=== PATIENT | female | born 1985 | race Caucasian/White ===

== ENCOUNTER 2018-12-06 01:13 | Inpatient (IN) | payer BC ==
[2018-12-06] MEDS ORDERED: IBUPROFEN 600 MG TAB PO PRN (01:42)
[2018-12-06] MEDS ORDERED: MISOPROSTOL 200 MCG TAB PR PRN (01:42)
[2018-12-06] MEDS ORDERED: OLIVE OIL 118 ML BTL MISC PRN (01:42)
[2018-12-06] MEDS ORDERED: OXYTOCIN/RINGERS LACTATE 1,000 ML IV PRN (01:42)
[2018-12-06] MEDS ORDERED: LIDOCAINE 1% 300 MG/30 ML SDV SC PRN (01:42)
[2018-12-06] MEDS ORDERED: EPSOM SALT 454 GM TP PRN (01:42)
[2018-12-06] MEDS ORDERED: LR 1,000 ML IV PRN (01:42)
--- NOTE | 2018-12-06 01:43 | PDGENHP ---
History and Physical - Chief Complaint Early labor - History of Present Illness Uyen is a 33 yo today at 40w2d by SHIVANI on 12/04/18. Saw Dr. Casey in clinic this morning and was 3cm, had membranes swept. Reports she was feeling mild cramps throughout the day that intensified around 2300. Does not think her water has broke. GBS negative. 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 H/o anxiety and depression. H/o borderline BP during her first labor, but never with a diagnosis of GHTN or preeclampsia. H/o one SAB with no D&C required, then G1 was an "Elayne" at 40w3d, [id number]. Had epidural. labs: A pos Antibody Neg RPR NR Rubella LOW immune (11) Hep B neg HIV neg Trio neg 2014 Standard panel neg this preg UDS neg GCC neg Innatal normal H/H 12.6/37.8 (28 wks) Glucola 126 VZV and Parvo immune History Information - Allergies/Home Medication List Allergies/Adverse Reactions: No Known Allergies Allergy (Unverified 07/26/15 01:31) Home Medications: 12/06/18 [Last Taken 12/05/18 22:00] Valtrex (*) 12/06/18 [Last Taken 12/05/18 22:00] I have personally reviewed and updated: family history, medical history, social history, surgical history Past Medical History: H/o genital herpes, Borderline BP elevations in first labor - no dx of GHTN or preE, Anxiety - Surgical History Additional surgical history: None - x 1, Tonsils - Family History Positive for: non-pertinent - Social History Smoking Status: Never smoked Review of Systems Review of Systems: ROS: 10pt was reviewed & negative except for what was stated in HPI & below Physical Exam Physical Exam: Uncomfortable with regular contractions, breathing through them Abdomen is soft between ctx's, gravid, longitudinal lie FHR 130bpm, mod elizabeth, accels present, no decels Regal regular ctx's q 3-4 mins 5-6/90/-2 per RN on initial exam, intact, vertex Assessment & Plan Assessment: 33 yo at 40w2d presents in active labor. - GBS negative. - Epidural whenever she wants. - Expectant mgmt. - Genital HSV - On prophylaxis, no recent lesions. - Anxiety, no meds - Rh pos, VZV immune. - Rubella low-immune at 11, does not need MMR per WHO criteria (>10). JM
[2018-12-06 01:55] LABS: PLATELET COUNT 194 10^3/uL (150-400)
[2018-12-06] MEDS ORDERED: OLIVE OIL 118 ML BTL MISC ONE (02:12)
[2018-12-06] MEDS ORDERED: LIDOCAINE 1% 300 MG/30 ML SDV ONE (02:12)
[2018-12-06] MEDS ORDERED: AMMONIA AROMATIC 1 EACH AMP IH ONE (02:13)
[2018-12-06] MEDS ORDERED: TERBUTALINE SULFATE 1 MG/ML VIAL ONE (02:13)
[2018-12-06] MEDS ORDERED: MISOPROSTOL 200 MCG TAB ONE (02:13)
[2018-12-06] MEDS ORDERED: OXYTOCIN 10 UNIT/ML VIAL ONE (02:13)
[2018-12-06] MEDS ORDERED: fentaNYL 100 MCG/2 ML INJ ONE (02:15)
[2018-12-06] MEDS ORDERED: PHENYLEPHRINE HCL 100 MCG/ML SYR ONE (02:15)
[2018-12-06] MEDS ORDERED: fentaNYL 200 MCG, BUPIVACAINE 0.5% 20 ML in NS 100 ML EP SCH (02:30)
[2018-12-06] MEDS ORDERED: ONDANSETRON 4 MG/2 ML VIAL IVP PRN (02:53)
[2018-12-06] MEDS ORDERED: NALOXONE HCL 0.4 MG/ML INJ IVP PRN (02:53)
[2018-12-06] MEDS ORDERED: PHENYLEPHRINE HCL 100 MCG/ML SYR IVP PRN (02:53)
--- NOTE | 2018-12-06 02:55 | PREANESOB ---
Obstetric Pre-Anesthesia Info - General Info Proposed Procedure: trial of labor : 3 Para: 1 SHIAVNI: 12/01/18 Gestational Age: 40 week(s) and 5 day(s) - Info Status: Full Term Monitors: External FHR Pattern: Reassuring - Labor Status Indications for Labor Analgesia: Pain Control Labor Epidural: Yes Anesthesia Allergies/Adverse Reactions: Allergy/AdvReac Type Severity Reaction Status Date / Time No Known Allergies Allergy Unverified 07/26/15 01:31 Home Medications: Medication Instructions Recorded 12/06/18 Valtrex (*) 12/06/18 Visit Medications: Generic Name Dose Route Start Last Admin Trade Name Freq PRN Reason Stop Dose Admin Lactated Ringer's 1,000 mls @ 0 mls/hr 12/06/18 01:42 Lr IV 12/07/18 01:41 PRN PRN SEE PROTOCOL CONDITIONS Protocol Per Protocol Oxytocin/Lactated Ringer's 1,000 mls @ 125 mls/hr 12/06/18 01:42 Pitocin 20 Units/Lr (Premix) IV PRN PRN Post bleeding Fentanyl 200 mcg/ Bupivacaine 100 mls @ 0 mls/hr 12/06/18 02:30 HCl 20 ml/ Sodium Chloride EP 12/16/18 02:29 CONT FLOYD Protocol As Directed Ibuprofen 600 mg 12/06/18 01:42 Motrin PO ONCE PRN post , pain Lidocaine HCl 300 mg 12/06/18 01:42 Lidocaine Hcl 1% SC 06/04/19 01:41 ONCE PRN episiotomy Magnesium Sulfate 454 gm 12/06/18 01:42 Epsom Salt TP 06/04/19 01:41 Q1H PRN perineal discomfort Misoprostol 800 - 1,000 mcg 12/06/18 01:42 Cytotec MA ONCE PRN Vaginal Atony/Bleeding [place] Oil 118 ml 12/06/18 01:42 Sweet Oil MISC 06/04/19 01:41 ONCE PRN perineal massage Discontinued Medications Generic Name Dose Route Start Last Admin Trade Name Freq PRN Reason Stop Dose Admin Ammonia (Aromatic Spirit) Confirm 12/06/18 02:13 Ammonia Aromatic Administered 12/06/18 02:14 Dose 1 each IH .STK-MED ONE Fentanyl Confirm 12/06/18 02:15 Sublimaze Administered 12/06/18 02:16 Dose 100 mcg .ROUTE .STK-MED ONE Lidocaine HCl Confirm 12/06/18 02:12 Lidocaine Hcl 1% Administered 12/06/18 02:13 Dose 300 mg .ROUTE .STK-MED ONE Misoprostol Confirm 12/06/18 02:13 Cytotec Administered 12/06/18 02:14 Dose 1,000 mcg .ROUTE .STK-MED ONE Ivanhoe Oil Confirm 12/06/18 02:12 Sweet Oil Administered 12/06/18 02:13 Dose 118 ml MISC .STK-MED ONE Oxytocin Confirm 12/06/18 02:13 Pitocin Administered 12/06/18 02:14 Dose 40 unit .ROUTE .STK-MED ONE Phenylephrine HCl Confirm 12/06/18 02:15 Neosynephrine Administered 12/06/18 02:16 Dose 1,000 mcg .ROUTE .STK-MED ONE Terbutaline Sulfate Confirm 12/06/18 02:13 Brethine Administered 12/06/18 02:14 Dose 1 mg .ROUTE .STK-MED ONE - Anesthesia History Response to Local Anesthetics: Normal Anesthesia & Operative History: No Prior Problems Family Anesthesia History: Negative - Vital Signs Height/Weight (Nursing): Height 172.72 cm Weight 80.286 kg - Focused Exam Mallampati Score: Class 2 Mouth exam: normal dental/mouth exam Labs: 12/06/18 01:30 Patient ABO/Rh A POSITIVE 12/06/18 01:30 - Plan Consent Signed and on Chart: Yes Patient/Guardian Understands and Agrees to Plan: Yes Urgent/Emergent Case: Cnidy darnell completed preop but documented later for safe timely pt care
[2018-12-06] MEDS ORDERED: fentaNYL 2MCG/ML/BUP 0.1% RTU 100 ML EP SCH (03:00)
[2018-12-06] MEDS ORDERED: LR 500 ML IV SCH (03:00)
[2018-12-06] MEDS ORDERED: oxyCODONE IR 5 MG TAB PO PRN (04:27)
[2018-12-06] MEDS ORDERED: HYDROCORTISONE 0.5% CREAM TP PRN (04:27)
[2018-12-06] MEDS ORDERED: SIMETHICONE 80 MG TAB CHEW PO PRN (04:27)
--- NOTE | 2018-12-06 04:27 | OBDEL ---
Info Type: Vaginal Presentation at Delivery: Vertex L&D Analgesia/Anesthesia Type: Epidural GBS+: No Intrapartum Medications: Generic Name Dose Route Start Last Admin Trade Name Freq PRN Reason Stop Dose Admin Lactated Ringer's 1,000 mls @ 0 mls/hr 12/06/18 01:42 12/06/18 02:00 Lr IV 12/07/18 01:41 1,000 mls PRN PRN Administration SEE PROTOCOL CONDITIONS Protocol Per Protocol Discontinued Medications Generic Name Dose Route Start Last Admin Trade Name Freq PRN Reason Stop Dose Admin Oxytocin/Lactated Ringer's 1,000 mls @ 125 mls/hr 12/06/18 01:42 12/06/18 04: 00 Pitocin 20 Units/Lr (Premix) IV 1,000 mls PRN PRN Administration Post bleeding Indications for Delivery: Spontaneous Labor Vaginal Delivery - Delivery Provider Delivery Physician/CNM: Pantera Mann - Labor and Delivery Onset of Contractions Date: 12/05/18 Onset of Contractions Time: 23:00 Onset of Contractions Type: Spontaneous Rupture of Membranes Type: Spontaneous Amniotic Fluid Color: Meconium Stained Dilation Complete Date: 12/06/18 Dilation Complete Time: 03:42 Placenta Delivery Date: 12/06/18 Placenta Delivery Time: 04:00 Total Hours of Labor: 5 Laceration: 2nd Degree, Other (Specify) (left labial) Repair: 3-0, 4-0, Vicryl Vaginal Sponge Count Correct: Yes Vaginal Needle Count Correct: Yes Vaginal Sweep Performed: Yes EBL: 350 Delivery Events: Nuchal Cord Delivery Comment: Presented in spontaneous labor, dilated to 6cm on arrival. Having non- repetitive variable decels. Cat 2 tracing. Got epidural. SROM'd soon after with meconium stained fluid. 9cm at that time. Soon after felt pushy and found to be complete and +2. Variables repetitive and deeper at this point and with pushing. Ultimately pushed over 4 contractions and delivered vigorous baby boy over 2nd degree lac with left labial lac. Baby up to mom's chest. 90 seconds of delayed cord clamping then clamped and cut. Placenta delivered spontaneously without issue. Normal on gross inspection. Labial lac repaired with running locked 4-0 vicryl. 2nd degree repaired with 3-0 vicryl standard fashion. Mom and baby doing well in room at conclusion, EBL 350cc. - Medications Labor Augmentation/Induction Methods Used: None Data SHIVANI: 12/04/18 Gestational Age: 40 week(s) and 2 day(s) Singletary Delivery Date: 12/06/18 Delivery Time: 03:55 Sex of Infant: Male Shoulder Dystocia Time Head Delivered: 03:55 Time Body Delivered: 03:55 Dystocia Comment: None ICD10 Worksheet Patient Problems: Problems Problem Status Onset Normal labor and delivery Acute Nuchal cord affecting delivery Acute (spontaneous vaginal delivery) Acute Normal labor Acute Spontaneous vaginal delivery Acute - ICD10 Problem Qualifiers (1) (spontaneous vaginal delivery) (2) Normal labor and delivery (3) Nuchal cord affecting delivery
[2018-12-06] MEDS: DOCUSATE SODIUM 100 MG CAP PO PRN ×2 (08:08→20:31)
[2018-12-06] MEDS: ACETAMINOPHEN 325 MG TAB PO PRN ×3 (08:08→20:31)
--- NOTE | 2018-12-06 09:41 | POSTANESTH ---
Post Anesthetic Evaluation Cardiovascular Status: Normal, Stable, Similar to Pre-Op Cond Respiratory Status: Normal, Stable, Similar to Pre-op Cond. Level of Consciousness/Mental Status: Can Participate in Eval, Alert and Oriented Pain Control: Adequate, Prn Tx Ordered Nausea/Vomiting Control: Adequate, Prn Tx Ordered Complications Possibly Related to Anesthesia: None Noted Notes: Pt seen and examined. Back site c/d/i, no e/e/e. Block has resolved. Able to ambulate. Denies tubbs/n/v/pruritis. No apparent ill-effects from GARRICK.
[2018-12-06] MEDS: IBUPROFEN 600 MG TAB PO PRN ×2 (14:27→20:31)
[2018-12-07] MEDS: ACETAMINOPHEN 325 MG TAB PO PRN ×3 (05:01→17:38)
[2018-12-07] MEDS: IBUPROFEN 600 MG TAB PO PRN ×3 (05:01→17:38)
[2018-12-07] MEDS: DOCUSATE SODIUM 100 MG CAP PO PRN (11:16)
[2018-12-07] MEDS ORDERED: MEASLES,MUMPS&RUBELLA VACC/PF 0.5 ML VIAL SC ONE ×3 (11:27→19:03)
[2018-12-07] MEDS ORDERED: FERRO-SEQUELS 65 MG TAB.ER PO SCH (11:30)
--- NOTE | 2018-12-07 11:31 | OBPP ---
Progress Note Assessment/Plan: Assessment: 33 y/o PPD #1 s/p doing well Plan: support today. Rx Ibuprofen and Ferrous sequels. RTO 3 and 6 weeks and call for fever, heavy bleeding or other concerns. 12/07/18 11:30 Subjective/ Course: 12/07/18 11:28 Pt is doing well this am. She has good pain control with PO Ibuprofen and Tylenol. She has a BM this am, wasn't terrible. Ambulating and voiding without difficulty and has min lochia. Breast feeding is going well and baby is doing well. They are ready to d/c home later this afternoon. Objective: 12/07/18 05:45 Patient ABO/Rh A POSITIVE 12/06/18 01:30 Temp Pulse Resp BP Pulse Ox 36.1 C 90 16 119/74 96 12/06/18 20:00 12/06/18 20:00 12/06/18 20:00 12/06/18 20:00 12/06/18 20:00 Uterine Position/Fundal Height: Umbilicus -2 Uterine Tone: Firm Physical Exam - Physical Exam General Appearance: WD/WN, alert, no apparent distress Neck: non-tender, full range of motion, supple Respiratory: chest non-tender, lungs clear, normal breath sounds Cardiac/Chest: regular rate, rhythm Abdomen: normal bowel sounds Extremities: swelling (no), Rocio's sign (neg)
--- NOTE | 2018-12-07 11:36 | OBGCSDC ---
General Delivery Information - General Info : 3 Para: 2 Abortions: 1 Type: Vaginal L&D Analgesia/Anesthesia Type: Epidural Admission Date: 12/06/18 Labs: Patient ABO/Rh A POSITIVE 12/06/18 01:30 Hct 34.9 % (38.0-47.0) L 12/07/18 05:45 - Hospital Course : 12/07/18 11:28 Pt is doing well this am. She has good pain control with PO Ibuprofen and Tylenol. She has a BM this am, wasn't terrible. Ambulating and voiding without difficulty and has min lochia. Breast feeding is going well and baby is doing well. They are ready to d/c home later this afternoon. Vaginal - Delivery Provider Delivery Physician/CNM: Pantera Mann - Diagnosis Labor: Spontaneous Rupture of Membranes Type: Spontaneous Amniotic Fluid Color: Meconium Stained Laceration: 2nd Degree, Other (Specify) (left labial) Repair: 3-0, 4-0, Vicryl Delivery Events: Nuchal Cord - Delivery EBL: 350 Data SHIVANI: 12/04/18 Gestational Age: 40 week(s) and 3 day(s) Singletary Delivery Date: 12/06/18 Delivery Time: 03:55 Sex of Infant: Male Weight (gm): 3655 kg Score (1 Min): 8 Score (5 Min): 9 Discharge Information - Discharge Information Prescriptions: Ibuprofen [Motrin (*)] 600 mg PO Q6HRS PRN #30 tab PRN Reason: Pain, Mild Able To Take Po Iron/Vit C/Docusate [Cathleen-Sequels 65 mg (*)] 1 each PO DAILY #30 tab.er Condition: Good Instruction/Follow Up: Four Weeks, Six Weeks
[2018-12-07 13:36] VITALS: BP 117/83
== END 2018-12-07 16:45 | disposition home or self-care (01) | DRG 807 ==
LOC: FLD 01:13 → FOB 06:55
PROVIDERS: ADMIT Obstetrics & Gynecology; ATTEND Obstetrics & Gynecology
PROC: 0KQM0ZZ Repair Perineum Muscle, Open Approach (ICD-10-PCS; principal; 2018-12-06)
PROC: 10E0XZZ Delivery of Products of Conception, External Approach (ICD-10-PCS; principal; 2018-12-06)
DX: O98.52 Other viral diseases complicating childbirth (principal); Z37.0 Single live birth; B00.9 Herpesviral infection, unspecified; O70.1 Second degree perineal laceration during delivery; Z3A.40 40 weeks gestation of pregnancy; O69.82X0 Labor and delivery complicated by other cord entanglement, without compression, not applicable or unspecified
CPT/HCPCS: J2370; J2590; J3010; J3105